=== PATIENT | female | born 1995 | race Caucasian/White ===

== ENCOUNTER 2016-10-18 15:31 | Emergency (ER) | payer OTHER ==
[~2016-10-18] VITALS: Ht 152.4 cm; Wt 45.4 kg
[~2016-10-18 15:31] MED LIST: PROZAC10 MG ORAL; QUETIAPINE FUMA25 MG ORAL; ZOFRAN ODT4 MG ORAL
[2016-10-18 16:08] VITALS: BP 122/80
[2016-10-18 16:22] LABS: APPEARANCE,URINE CLEAR; KETONES,URINE NEGATIVE (NEGATIVE); LEUKOCYTE ESTERASE ,URINE 1+ (NEGATIVE); NITRITE,URINE NEGATIVE (NEGATIVE); PH,URINE 6.5 (4.5-8.0); PROTEIN,URINE NEGATIVE (NEGATIVE); UROBILINOGEN,URINE NORMAL MG/DL (0.0-1.0)
[2016-10-18 16:33] LABS: BACTERIA,URINE FEW /HPF; RBC,URINE 0-2 /HPF (0 - 2); SQUAMOUS EPITHELIAL CELL,UR FEW /LPF (NONE/OCC)
[2016-10-18 16:34] LABS: TRICHOMONAS,URINE FEW /HPF
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
[2016-10-18] MEDS ORDERED: Azithromycin 250mg tab ORAL ONE (17:00)
[2016-10-18] MEDS ORDERED: Lidocaine 1% MPF 10mg/ml 5ml ONE (17:15)
[2016-10-18 17:55] VITALS: BP 116/85
[2016-10-18] MEDS ORDERED: METRONIDAZOLE500 MG ORAL (18:09)
[2016-10-18 18:20] VITALS: BP 116/85
--- NOTE | 2016-10-19 13:03 | Diagnostic Imaging Report ---
Indication: pain Findings: 3 views of the left hand were obtained. Normal bony mineralization and alignment are demonstrated. No acute fractures, erosions, or periosteal reaction are seen. Soft tissues are unremarkable. Impression: Negative examination of the left hand.
== END 2016-10-18 18:31 | disposition home or self-care (01) ==
LOC: EDBD 15:31 → EMR 17:41
DX: F18.10 Inhalant abuse, uncomplicated (principal); A59.9 Trichomoniasis, unspecified
CPT/HCPCS: 73130; 81003; 81025; 96372; 99283; J0696

== ENCOUNTER 2017-10-29 18:04 | Emergency (ER) | payer OTHER ==
[~2017-10-29] VITALS: Ht 152.4 cm; Wt 59.0 kg
[~2017-10-29 18:04] MED LIST changes: +METRONIDAZOLE500 MG ORAL
[2017-10-29 18:30] VITALS: BP 109/65
[2017-10-29 19:33] LABS: APPEARANCE,URINE SLIGHTLY CLOUDY; BILIRUBIN, URINE NEGATIVE (NEGATIVE); COLOR,URINE PALE YELLOW; GLUCOSE, URINE (UA) 1+ (NEGATIVE); KETONES,URINE NEGATIVE (NEGATIVE); LEUKOCYTE ESTERASE ,URINE 1+ (NEGATIVE); NITRITE,URINE NEGATIVE (NEGATIVE); PH,URINE 6.5 (4.5-8.0); PROTEIN,URINE NEGATIVE (NEGATIVE); UROBILINOGEN,URINE NORMAL MG/DL (0.0-1.0)
--- NOTE | 2017-10-29 19:48 | Emergency Room Report ---
History of Present Illness General Chief Complaint: General Complaint Source: Patient Present Illness HPI 22 YO Female presents to the ED c/o headache x progressive in nature x 3 days. Described as constant 10/10 in severity dull frontal ache. Pt. reports one episode of nausea/vomiting this a.m. denies blood in the vomit, stool or dark tarry stools. pt. denies recent head injury, trauma or fall. denies changes in vision, vertigo, imbalance or tinnitus. Denies abdominal pain/tenderness, constipation or diarrhea. reports some urinary frequency and dysuria. denies hematuria or low back pain. Denies fevers or chills. Patient also requests refill of her psychiatric medications Geodon and Seroquel. Patient denies delusions, hallucinations, auditory hallucinations, SI or HI. Denies CP, Palpitations, LOC, AMS, dizziness, Changes in Vision, Sensation, paresthesias, or a sudden severe headache. Allergies: Coded Allergies: No Known Allergies (Unverified , 09/29/16) Patient History Past Medical History: see triage record, psych hx Past Surgical History: none Pertinent Family History: none Last Menstrual Period: do not know Reviewed Nursing Documentation: PMH: Agreed, PSxH: Agreed Nursing Documentation-PMH Past Medical History: No Stated History Review of Systems All Other Systems: negative except mentioned in HPI Physical Exam Vital Signs Date Time Temp Pulse Resp B/P (MAP) Pulse Ox O2 Delivery O2 Flow Rate FiO2 10/29/17 18:08 98.1 91 18 109/65 97 Room Air Sp02 EP Interpretation: reviewed, normal General Appearance: no apparent distress, alert, GCS 15, non-toxic Head: normocephalic, atraumatic Eyes: bilateral eye normal inspection, bilateral eye PERRL, bilateral eye EOMI ENT: hearing grossly normal, normal voice Neck: full range of motion Respiratory: lungs clear, normal breath sounds, speaking full sentences Cardiovascular #1: regular rate, rhythm Gastrointestinal: normal bowel sounds, non tender, soft Rectal: deferred Genitourinary: normal inspection Musculoskeletal: back normal, gait/station normal, normal range of motion, non- tender Neurologic: alert, oriented x3, responsive, motor strength/tone normal, sensory intact, normal gait, speech normal, no pronator, other - negative tafoya's, wqual construction services technician strength, grossly normal Psychiatric: judgement/insight normal, no suicidal/homicidal ideation, no delusions Skin: normal color, no rash, warm/dry, well hydrated Lymphatic: no adenopathy Medical Decision Making PA Attestation Dr. Caldwell is my supervising Physician whom patient management has been discussed with. Diagnostic Impression: Primary Impression: Head ache Qualified Codes: R51 - Headache Additional Impressions: Nausea & vomiting Qualified Codes: R11.2 - Nausea with vomiting, unspecified Medication refill UTI (urinary tract infection) Qualified Codes: N30.01 - Acute cystitis with hematuria ER Course 22 YO Female presents to the ED c/o headache x progressive in nature x 3 days. Described as constant 10/10 in severity dull frontal ache. Pt. reports one episode of nausea/vomiting this a.m. denies blood in the vomit, stool or dark tarry stools. pt. denies recent head injury, trauma or fall. denies changes in vision, vertigo, imbalance or tinnitus. Denies abdominal pain/tenderness, constipation or diarrhea. reports some urinary frequency and dysuria. denies hematuria or low back pain. Denies fevers or chills. Patient also requests refill of her psychiatric medications Geodon and Seroquel. Patient denies delusions, hallucinations, auditory hallucinations, SI or HI. Denies CP, Palpitations, LOC, AMS, dizziness, Changes in Vision, Sensation, paresthesias, or a sudden severe headache. Ddx considered but are not limited to migraine, SAH, Psedudo motor Cerebri, Mass lesion, Cluster TRINIDAD, Tension TRINIDAD, Post lumbar puncture TRINIDAD. Vital signs: are WNL, pt. is afebrile H&PE are most consistent with migraine headache ORDERS: - UA: Most likely contamination: presence of bacteria and squamous cells, nitrite negative. However due to elevation in inflammatory markers and pt. having dysuria will treat clinically for UTI. -Urine HCG: negative ED INTERVENTIONS: - Zofran IV - NS 1000 NS Bolus She is able to tolerate oral fluids without vomiting. DISCHARGE: At this time pt. is stable for d/c to home. Will provide printed patient care instructions, and any necessary prescriptions. Care plan and follow up instructions have been discussed with the patient prior to discharge. Labs Test 10/29/17 19:10 Urine Color Pale yellow Urine Appearance Slightly cloudy Urine pH 6.5 (4.5-8.0) Urine Specific [place] 1.015 (1.005-1.035) Urine Protein Negative (NEGATIVE) Urine Glucose (UA) 1+ (NEGATIVE) Urine Ketones Negative (NEGATIVE) Urine Occult Blood Negative (NEGATIVE) Urine Nitrite Negative (NEGATIVE) Urine Bilirubin Negative (NEGATIVE) Urine Urobilinogen Normal MG/DL (0.0-1.0) Urine Leukocyte Esterase 1+ (NEGATIVE) Urine RBC 0-2 /HPF (0 - 2) Urine WBC 10-15 /HPF (0 - 2) Urine Squamous Epithelial Cells Many /LPF (NONE/OCC) Urine Bacteria Few /HPF (NONE) Urine HCG, Qualitative Negative Last Vital Signs Date Time Temp Pulse Resp B/P (MAP) Pulse Ox O2 Delivery O2 Flow Rate FiO2 10/29/17 18:30 98.1 91 18 109/65 97 Room Air Disposition: HOME, SELF-CARE Condition: Stable Scripts Nitrofurantoin Monohyd/M-Cryst* (MACROBID 100 MG*) 100 Mg Capsule 100 MG ORAL EVERY 12 HOURS for 5 Days, #10 CAP Prov: Bambi Mccall P.A. 10/29/17 Quetiapine Fumarate (QUETIAPINE FUMARATE ER) 150 Mg Tab.er.24h 150 MG PO QHS, #15 TAB Prov: Bambi Mccall P.A. 10/29/17 Ziprasidone Hcl* (GEODON*) 40 Mg Capsule 40 MG ORAL DAILY, #15 CAP 0 Refills Prov: Bambi Mccall P.A. 10/29/17 Aspirin/Acetaminophen/Caffeine (EXCEDRIN MIGRAINE GELTAB) 1 Each Tablet 1 EACH PO Q6HR, #20 TAB Prov: Bambi Mccall P.A. 10/29/17 Patient Instructions: General Headache Without Cause, [id number], Nausea and Vomiting, Adult, [id number] Additional Instructions: Take medications as directed. Follow up with a Primary Care Provider in 3-5 days, even if your symptoms have resolved. --Please review list of primary care clinics, if you do not already have a primary care provider Return sooner to ED if new symptoms occur, or current symptoms become worse. Do not drink alcohol, drive, or operate heavy machinery while taking Seroquel as this may cause drowsiness. - Please note that this Emergency Department Report was dictated using [employer] punch operator technology software, occasionally this can lead to erroneous entry secondary to interpretation by the dictation equipment. Bambi Mccall Oct 29, 2017 19:48
[2017-10-29] MEDS ORDERED: EXCEDRIN MIGRA1 EACH PO (19:52)
[2017-10-29] MEDS ORDERED: GEODON40 MG ORAL (19:52)
[2017-10-29] MEDS ORDERED: QUETIAPINE FUM150 MG PO (19:52)
[2017-10-29] MEDS ORDERED: NITROFURANTOIN100 M2 ORAL (19:59)
[2017-10-29 20:10] VITALS: BP 109/65
== END 2017-10-29 20:10 | disposition home or self-care (01) ==
LOC: EMR 18:20
DX: R51 Headache (principal); R11.2 Nausea with vomiting, unspecified; Z76.0 Encounter for issue of repeat prescription; N39.0 Urinary tract infection, site not specified
CPT/HCPCS: 81003; 81025; 87086; 96361; 96374; 99284; J2405

== ENCOUNTER 2018-05-17 10:42 | Emergency (ER) | payer OTHER ==
[~2018-05-17] VITALS: Ht 162.6 cm; Wt 59.0 kg
[2018-05-17 10:42] VITALS: BP 94/50
[~2018-05-17 10:42] MED LIST changes: +EXCEDRIN MIGRA1 EACH PO; +GEODON40 MG ORAL; +NITROFURANTOIN100 M2 ORAL; +QUETIAPINE FUM150 MG PO
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
[2018-05-17] MEDS ORDERED: SILVADENE20 GM TP (11:19)
[2018-05-17 11:25] VITALS: BP 94/50
== END 2018-05-17 11:25 | disposition home or self-care (01) ==
LOC: EDBD 10:42 → EMR 11:04
DX: T65.91XA Toxic effect of unspecified substance, accidental (unintentional), initial encounter (principal); T21.01XA Burn of unspecified degree of chest wall, initial encounter; T20.07XA Burn of unspecified degree of neck, initial encounter; X08.8XXA Exposure to other specified smoke, fire and flames, initial encounter; Y93.89 Activity, other specified; Y92.9 Unspecified place or not applicable
CPT/HCPCS: 99284

== ENCOUNTER 2018-05-21 10:39 | Emergency (ER) | payer OTHER ==
[~2018-05-21] VITALS: Ht 160 cm; Wt 59.0 kg
[2018-05-21 10:38] VITALS: BP 126/74
[~2018-05-21 10:39] MED LIST changes: +SILVADENE20 GM TP
[2018-05-21] MEDS ORDERED: LITHIUM CARBON300 M1 PO (10:54)
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
[2018-05-21 11:29] VITALS: BP 126/74
== END 2018-05-21 11:33 | disposition home or self-care (01) ==
LOC: EDBD 10:39 → EMR 11:00
DX: T65.891A Toxic effect of other specified substances, accidental (unintentional), initial encounter (principal); Y92.9 Unspecified place or not applicable; F18.10 Inhalant abuse, uncomplicated
CPT/HCPCS: 99284

== ENCOUNTER 2018-09-11 20:01 | Emergency (ER) | payer OTHER ==
[~2018-09-11] VITALS: Ht 152.4 cm; Wt 54.4 kg
[~2018-09-11 20:01] MED LIST changes: +LITHIUM CARBON300 M1 PO
[2018-09-11 20:20] VITALS: BP 115/75
[2018-09-12 00:25] VITALS: BP 115/75
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
== END 2018-09-11 22:00 | disposition left against medical advice (07) ==
LOC: EMR 22:00
DX: F19.10 Other psychoactive substance abuse, uncomplicated (principal); F10.10 Alcohol abuse, uncomplicated; F31.9 Bipolar disorder, unspecified; F41.9 Anxiety disorder, unspecified; Z91.410 Personal history of adult physical and sexual abuse; R11.0 Nausea; R52 Pain, unspecified
CPT/HCPCS: 99282

== ENCOUNTER 2018-10-17 18:45 | Emergency (ER) | payer OTHER ==
[~2018-10-17] VITALS: Ht 149.9 cm; Wt 52.2 kg
[2018-10-17 18:48] VITALS: BP 128/81
[2018-10-17 19:00] VITALS: BP 125/75
--- NOTE | 2018-10-17 19:10 | Emergency Room Report ---
History of Present Illness General Chief Complaint: Chemical Exposure Source: Patient Present Illness HPI Is a 23-year-old female who called 911 because he complaining of headache and dizziness. She wasn't sober living but was kicked out because she was continue huffing. Here she denies any complaint. She is want to use the phone to call different places. She was not cooperative with me. Denies any other complaint. Allergies: Coded Allergies: No Known Allergies (Unverified , 09/29/16) Patient History Past Medical History: see triage record, old chart reviewed Past Surgical History: other Pertinent Family History: none Social History: Reports: drug use Last Menstrual Period: n/a Now: No Immunizations: other Reviewed Nursing Documentation: PMH: Agreed; PSxH: Agreed Nursing Documentation-PMH Past Medical History: No History, Except For Hx Hypertension: No Hx Neurological Problems: Yes - Bipolar, depression,anxiety Review of Systems Eye: Denies: eye pain, blurred vision ENT: Denies: ear pain, nose congestion, throat swelling Respiratory: Denies: cough, shortness of breath Cardiovascular: Denies: chest pain, palpitations Gastrointestinal: Denies: abdominal pain, diarrhea, nausea, vomiting Musculoskeletal: Denies: back pain, joint pain Skin: Denies: rash Neurological: Denies: headache, numbness Endocrine: Denies: increased thirst, increased urine Hematologic/Lymphatic: Denies: easy bruising All Other Systems: negative except mentioned in HPI Physical Exam Vital Signs Date Time Temp Pulse Resp B/P (MAP) Pulse Ox O2 Delivery O2 Flow Rate FiO2 10/17/18 18:41 98.1 78 18 128/81 96 10/17/18 18:48 Room Air 98 vitals normal Sp02 EP Interpretation: reviewed, normal General Appearance: well appearing, no apparent distress, alert Head: normocephalic, atraumatic Eyes: bilateral eye PERRL, bilateral eye EOMI ENT: hearing grossly normal, normal pharynx Neck: full range of motion, supple, no meningismus Respiratory: chest non-tender, lungs clear, normal breath sounds Cardiovascular #1: regular rate, rhythm, no murmur Gastrointestinal: normal bowel sounds, non tender, no mass, no organomegaly, no bruit, non-distended Musculoskeletal: back normal, gait/station normal, normal range of motion Psychiatric: mood/affect normal Skin: warm/dry Medical Decision Making Diagnostic Impression: Primary Impression: Huffing ER Course Patient here with chief complaint of coughing. Denies any suicidal thoughts homicidal thought. She is otherwise stable. We'll discharge home. Last Vital Signs Date Time Temp Pulse Resp B/P (MAP) Pulse Ox O2 Delivery O2 Flow Rate FiO2 10/17/18 18:48 98.1 87 20 128/81 97 Room Air 10/17/18 18:48 98 Status: improved Disposition: HOME, SELF-CARE Condition: Stable Additional Instructions: stop using drugs. Follow up with your doctor in 7 days. return if worse. John Tobar MD Oct 17, 2018 19:10
== END 2018-10-17 19:00 | disposition home or self-care (01) ==
LOC: EDBD 18:45 → EMR 19:00
DX: T59.92XA Toxic effect of unspecified gases, fumes and vapors, intentional self-harm, initial encounter (principal); Y92.9 Unspecified place or not applicable; F31.9 Bipolar disorder, unspecified; F32.9 Major depressive disorder, single episode, unspecified; F41.9 Anxiety disorder, unspecified
CPT/HCPCS: 99282

== ENCOUNTER 2019-02-23 13:52 | Emergency (ER) | payer OTHER ==
[~2019-02-23] VITALS: Ht 152.4 cm; Wt 54.4 kg
[2019-02-23 13:52] VITALS: BP 117/77
--- NOTE | 2019-02-23 13:52 | NUR ---
ED Nurse Note: pt brought in by [facility] from [facility], c/o headache after pt inhale computer cleanser spray. PA at the bedside talking to pt.
--- NOTE | 2019-02-23 13:58 | NUR ---
ED Nurse Note: pt left without being seen by PA. pt verbalized understanding and consequences, left w/ all belongings. ambulatory w/ steady gait, pt resp even and unlabored on RA.
--- NOTE | 2019-02-23 17:36 | Emergency Room Report ---
History of Present Illness General Chief Complaint: Headache Source: Patient Present Illness HPI This Pt. refused to be seen by provider. Allergies: Coded Allergies: No Known Allergies (Unverified , 09/29/16) Patient History Past Medical History: see triage record Last Menstrual Period: 01/2019 Now: No Nursing Documentation-PM Past Medical History: No Stated History Hx Hypertension: No Hx Neurological Problems: Yes - Bipolar, depression,anxiety Review of Systems All Other Systems: limited - poor pt. cooperation Physical Exam Vital Signs Date Time Temp Pulse Resp B/P (MAP) Pulse Ox O2 Delivery O2 Flow Rate FiO2 02/23/19 13:48 110 16 98 Room Air 02/23/19 13:52 117/77 Medical Decision Making Diagnostic Impression: Primary Impression: Headache Qualified Codes: R51 - Headache ER Course This Pt. refused to be seen by provider. She was A & O x 3. She had the capacity to make decisions on her own. Was not in acute distress. Last Vital Signs Date Time Temp Pulse Resp B/P (MAP) Pulse Ox O2 Delivery O2 Flow Rate FiO2 02/23/19 13:58 16 117/77 98 Room Air 02/23/19 13:52 97 Disposition: ELOPED Condition: Unknown Referrals: NOT CHOSEN IPA/,REFERRING (PCP) Bambi Mccall February 23, 2019 17:36
== END 2019-02-23 14:10 | disposition left against medical advice (07) ==
LOC: EDBD 13:52 → EMR 14:05
DX: R51 Headache (principal); Z53.21 Procedure and treatment not carried out due to patient leaving prior to being seen by health care provider
CPT/HCPCS: 99283

== ENCOUNTER → 2019-04-16 | Emergency (ER) | payer OTHER ==
[~2019-04-16] VITALS: Ht 160 cm; Wt 68.0 kg
[~2019-04-16] MED LIST changes: +NKM
[2019-04-16 11:18] VITALS: BP 118/74
--- NOTE | 2019-04-16 11:18 | NUR ---
ED Nurse Note:PT. WAS biba BY [facility] AND [facility] FOR SNIFFING AIRSPRAY, PT. IS a/[facility] AMBULATORY ,WAS MEDICLY CLEARED FOR D/C BY ER , SHE WILL GO TO REHAB [facility]IA [facility]
[2019-04-16 11:35] VITALS: BP 118/74
--- NOTE | 2019-04-16 11:37 | NUR ---
ED Nurse Note:pt. was given d/c instructions and she was taken to drugs rehab by [facility] caregiver from rehab
--- NOTE | 2019-04-18 14:46 | Emergency Room Report ---
History of Present Illness General Chief Complaint: Behavioral Complaint Source: Patient Present Illness HPI 24-year-old female presents ED for evaluation. Patient brought in by EMS for evaluation of overdose. Patient found in parking lot sniffing computer cleaners today. Upon arrival patient is awake alert oriented x3. Is crying. States that she is residing in a rehab facility and she relapsed today. Denies SI or HI. Denies any other drug use. No other aggravating or relieving factors. Denies any other associated symptoms Allergies: Coded Allergies: No Known Allergies (Unverified , 09/29/16) Patient History Past Medical History: none Past Surgical History: none Pertinent Family History: none Social History: Denies: smoking, alcohol use, drug use Now: No Immunizations: UTD Reviewed Nursing Documentation: PMH: Agreed; PSxH: Agreed Nursing Documentation-PMH Past Medical History: No Stated History Hx Hypertension: No Hx Neurological Problems: Yes - Bipolar, depression,anxiety Review of Systems All Other Systems: negative except mentioned in HPI Physical Exam Vital Signs Date Time Temp Pulse Resp B/P (MAP) Pulse Ox O2 Delivery O2 Flow Rate FiO2 04/16/19 10:30 98.4 86 16 118/74 (89) 98 Room Air Sp02 EP Interpretation: reviewed, normal General Appearance: no apparent distress, alert, GCS 15, non-toxic Head: normocephalic, atraumatic Eyes: bilateral eye normal inspection, bilateral eye PERRL ENT: hearing grossly normal, normal pharynx, no angioedema, normal voice Neck: full range of motion, supple/symm/no masses Respiratory: chest non-tender, lungs clear, normal breath sounds, speaking full sentences Cardiovascular #1: regular rate, rhythm, no edema Cardiovascular #2: 2+ carotid (R), 2+ carotid (L), 2+ radial (R), 2+ radial (L) , 2+ dorsalis pedis (R), 2+ dorsalis pedis (L) Gastrointestinal: normal bowel sounds, non tender, soft, non-distended, no guarding, no rebound Rectal: deferred Genitourinary: normal inspection, no CVA tenderness Musculoskeletal: back normal, gait/station normal, normal range of motion, non- tender Neurologic: alert, oriented x3, responsive, motor strength/tone normal, sensory intact, speech normal Psychiatric: no suicidal/homicidal ideation, no delusions, anxious Reflexes: 3+ bicep (R), 3+ bicep (L), 3+ tricep (R), 3+ tricep (L), 3+ knee (R) , 3+ knee (L) Lymphatic: no adenopathy Medical Decision Making Diagnostic Impression: Primary Impression: Substance abuse ER Course Hospital Course 24-year-old female presents to ED status post overdose on computer cleaners Clinical course Patient placed on stretcher. Her initial history physical exam reveals a female in no acute distress. He is anxious but crying. Awake alert oriented x3. Physical exam unremarkable. Denies SI but admits that she needs rehab My assessment shows no evidence of SI/HI requiring psychiatric evaluation. Patient is medically cleared. Rehab prospect manager is here at bedside to take patient home. Safe for discharge with close outpatient follow-up. Will provide referrals Diagnosis - substance abuse stable and discharged to home. Followup with PMD/psych. Return to ED if symptoms recur or worsen Last Vital Signs Date Time Temp Pulse Resp B/P (MAP) Pulse Ox O2 Delivery O2 Flow Rate FiO2 04/16/19 11:35 98.4 80 16 118/74 98 Room Air Status: improved Disposition: HOME, SELF-CARE Condition: Stable Referrals: [facility] Patient Instructions: Finding Treatment for Addiction Juni Thomas MD Apr 18, 2019 14:46
== END | disposition home or self-care (01) ==
LOC: EDUNIT# 10:30 → EDBD 10:39 → EMR 11:10
DX: F18.10 Inhalant abuse, uncomplicated (principal); F31.9 Bipolar disorder, unspecified; F32.9 Major depressive disorder, single episode, unspecified; F41.9 Anxiety disorder, unspecified
CPT/HCPCS: 99282